=== PATIENT | female | born 1950 ===

== ENCOUNTER 2021-05-11 05:30 | Day surgery (SDC) | payer OTHER | END 2021-05-11 11:25 | disposition home or self-care (01) | LOC: AMB-ENDOS 05:30 | PROVIDERS: ATTEND Surgery | DX: D12.5 Benign neoplasm of sigmoid colon (principal); K57.30 Diverticulosis of large intestine without perforation or abscess without bleeding; Z79.82 Long term (current) use of aspirin ==